=== PATIENT | female | born 1990 | race Two or more races ===

== ENCOUNTER 2021-08-03 13:37 | Emergency (ER) | payer SELFPAY ==
[~2021-08-03] VITALS: Ht 167.6 cm; Wt 75.0 kg
[2021-08-03 13:42] VITALS: BP 114/75
== END 2021-08-03 19:30 | disposition left against medical advice (07) ==
LOC: ER 13:58
DX: Z53.21 Procedure and treatment not carried out due to patient leaving prior to being seen by health care provider (principal)
CPT/HCPCS: 99281

== ENCOUNTER 2021-11-22 23:06 | Emergency (ER) | payer SELFPAY ==
[~2021-11-22] VITALS: Ht 165.1 cm; Wt 72.0 kg
[~2021-11-22 23:06] MED LIST: DOXY100C5 MT; METR500T MT
[2021-11-23 04:34] VITALS: BP 125/82
== END 2021-11-23 04:39 | disposition home or self-care (01) ==
LOC: ER 23:18
DX: R53.83 Other fatigue (principal); F19.10 Other psychoactive substance abuse, uncomplicated; F17.290 Nicotine dependence, other tobacco product, uncomplicated; F15.10 Other stimulant abuse, uncomplicated
CPT/HCPCS: 99281